=== PATIENT | male | born 1960 | race Caucasian/White ===

== ENCOUNTER → 2019-03-20 | Outpatient (CLI) | payer BC, MEDICAID ==
[2014-08-13 11:16] VITALS: BMI 27.5
[~2019-03-20] MED LIST: AMOX-355 PO; BENZ1 PO; CEP250 PO; CLI150 PO; FLUPHENAZINE; GUALA600 PO; HYDR50CA48 PO; LISI-362 PO; LISI30TA49 PO; LURA20TA PO; LURA60TA PO; MOX400 PO; NO RTN MEDS; PERP4TAB37 PO; PRE20 PO; [UNRECOGNIZED DRUG - CODE] PO; [UNRECOGNIZED DRUG - OTHER]
--- NOTE | 2019-03-20 09:06 | RADIOLOGY IMAGING REPORT ---
FACILITY: [facility] PATIENT NAME: Mckinley John : 1960 MR: [id number] V: [id number] EXAM DATE: ORDERING PHYSICIAN: AMY WHITE TECHNOLOGIST: Location: [facility] [place] Patient: Mckinley John : 1960 Visit/Account:[id number] Date of Sevice: 03/20/2019 MRI right knee without contrast Indication: Knee pain. Mechanical symptoms. Comparison: None available. Technique: Multiplanar, multisequence MRI examination is performed of the right knee without contrast . Findings: Examination of the medial compartment demonstrates a complex radial predominant tear involving the po sterior horn of the medial meniscus near the posterior root. There is medial extrusion of the menisca l body. Severe chondrosis involves the weightbearing surfaces of the condyle and the medial tibial pl [place]. There is subchondral edema-like signal and osteophyte production. Scattered small subchondral cysts are also seen. Examination of the lateral compartment demonstrates a borderline discoid lateral meniscus without foc al tearing. The articular cartilage surfaces are normal. Examination of the patellofemoral compartment demonstrates shallow chondrosis at the median ridge of the patella. The trochlear surfaces are maintained. There are small osteophytes. ACL and PCL are intact. The MCL is intact. The lateral collateral ligament complex is maintained. The extensor mechanism is intact. An intermediate sized joint effusion is seen. IMPRESSION: 1. Complex, radial predominant tear involving the posterior horn of the right knee medial meniscus ne ar the posterior root with medial meniscal extrusion. 2. Severe medial compartment predominant osteoarthritis of the right knee. 3. Intermediate knee joint effusion. Report Dictated By: Yung Irvin at 03/20/2019 8:54 AM Report E-Signed By: Yung Irvin at 03/20/2019 9:01 AM WSN:[id number]
== END ==
LOC: MRI 00:58
PROVIDERS: ATTEND Family Medicine
DX: M23.351 Other meniscus derangements, posterior horn of lateral meniscus, right knee (principal); M17.11 Unilateral primary osteoarthritis, right knee; M25.461 Effusion, right knee

== ENCOUNTER → 2019-04-24 | Outpatient (CLI) | payer MEDICAID ==
[2014-08-13 11:16] VITALS: BMI 27.5
[2019-04-24 13:20] LABS: PLATELET COUNT, AUTOMATED 228 K/uL (150-450)
== END ==
LOC: LAB 13:05
PROVIDERS: ATTEND Anesthesiology
DX: Z01.812 Encounter for preprocedural laboratory examination (principal); S83.241A Other tear of medial meniscus, current injury, right knee, initial encounter; S83.281A Other tear of lateral meniscus, current injury, right knee, initial encounter
CPT/HCPCS: 36415; 82040; 82247; 82310; 82374; 82435; 82565; 82947; 84075; 84132; 84155; 84295; 84450; 84460; 84520; 85025